=== PATIENT | male | born 1950 | race Hispanic/Latino ===

== ENCOUNTER 2017-10-05 23:13 | Inpatient (IN) | payer MEDICARE, OTHER, SELFPAY ==
[~2017-10-05] VITALS: Ht 170.2 cm; Wt 93.0 kg
[2017-10-05 23:47] LABS: CREATININE 1.2 mg/dL (0.5-1.5); POTASSIUM 3.7 mmol/L (3.5-5.1)
[2017-10-05 23:48] LABS: INR 0.99 (0.85-1.15); PARTIAL THROMBOPLASTIN TIME 25.3 SEC (26.3-35.5); PROTHROMBIN TIME 10.4 SEC (9.6-11.6)
[2017-10-06 00:01] LABS: ALBUMIN 3.2 g/dL (3.5-5.0); BILIRUBIN,TOTAL 0.3 mg/dL (0.2-1.0); CREATINE KINASE MB 0.7 ng/mL (0.5-3.6)
[2017-10-06 00:05] LABS: BASOPHILS % (AUTO) 1.8 % (0.0-5.0); EOSINOPHILS % (AUTO) 2.8 % (0.0-8.0); HEMATOCRIT 23.1 % (42-54); LYMPHOCYTES % (AUTO) 17.8 % (21.0-51.0); MEAN CORPUSCULAR HEMOGLOBIN 18.8 pg (27.0-33.0); MEAN CORPUSCULAR HGB CONC 29.7 g/dL (32.0-36.0); MEAN CORPUSCULAR VOLUME 63.5 fL (79-99); MONOCYTES % (AUTO) 8.2 % (3.0-13.0); NEUTROPHILS % (AUTO) 69.4 % (40.0-77.0); PLATELET COUNT (AUTO) 293 K/uL (130-400); RED BLOOD CELL COUNT(AUTO) 3.64 MIL/uL (4.50-6.20); RED CELL DISTRIBUTION WIDTH 18.3 % (11.0-15.5); WHITE BLOOD COUNT (AUTO) 8.8 K/uL (4.8-10.8)
[2017-10-06] MEDS ORDERED: SODIUM CHLORIDE 0.9% 500ML 500 ML IV ONE (04:51)
[2017-10-06] MEDS ORDERED: PRAV40TA3 PO (07:55)
[2017-10-06] MEDS ORDERED: NITR0.4T50 SL (07:55)
[2017-10-06] MEDS ORDERED: LISI40TA4 PO (07:55)
[2017-10-06] MEDS ORDERED: ASPI-555 PO (07:55)
[2017-10-06] MEDS ORDERED: CARV12.511 PO (07:55)
[2017-10-06] MEDS ORDERED: CLOP75TA14 PO (07:55)
[2017-10-06] MEDS ORDERED: AMLO10TA2 PO (07:55)
[2017-10-06] MEDS ORDERED: ISOS10TA8 PO (07:55)
[2017-10-06 08:43] VITALS: BP 97/69
[2017-10-06] MEDS ORDERED: PANTOPRAZOLE 40 MG/VIAL IVP SCH (09:00)
[2017-10-06 09:30] VITALS: BP 91/44
[2017-10-06 11:56] VITALS: BP 161/95
[2017-10-06 16:20] LABS: HEMATOCRIT 29.2 % (42-54)
[2017-10-06 16:37] VITALS: BP 175/93
[2017-10-06] MEDS ORDERED: HYDRALAZINE HCL 20 MG/ML VIAL IV PRN ×2 (19:30→20:00)
[2017-10-06] MEDS ORDERED: HYDRALAZINE HCL 20 MG/ML VIAL ONE (19:54)
[2017-10-06 20:00] VITALS: BP 110/61
[2017-10-06] MEDS ORDERED: ACETAMINOPHEN 325 MG TAB PO PRN (20:00)
[2017-10-06] MEDS ORDERED: ONDANSETRON HCL 4 MG/2 ML VIAL IV PRN (20:00)
[2017-10-06] MEDS ORDERED: ACETAMINOPHEN-CODEINE 300/30MG TAB PO PRN (20:00)
[2017-10-06] MEDS ORDERED: NITROGLYCERIN 0.4 MG SL TAB SL SCH (20:00)
[2017-10-06] MEDS ORDERED: MORPHINE SULFATE 2 MG/ML 1ML SYG IV PRN (20:00)
[2017-10-06] MEDS ORDERED: GUAIFENESIN-DM 200/20 MG 10 ML PO PRN (20:00)
[2017-10-06] MEDS ORDERED: MAG HYDROX/AL HYDROX/SIMETH ES 30 ML SUSP UDCUP PO PRN (20:00)
[2017-10-06] MEDS ORDERED: NITROGLYCERIN 0.4 MG SL TAB SL PRN (20:00)
[2017-10-06] MEDS ORDERED: LACTULOSE 20 GM/30 ML UDCUP PO PRN (20:00)
[2017-10-06] MEDS ORDERED: ZOLPIDEM TARTRATE 5 MG TAB PO PRN (20:00)
[2017-10-06] MEDS ORDERED: BENZONATATE 100 MG CAPSULE PO SCH (21:00)
[2017-10-06] MEDS ORDERED: ATORVASTATIN CALCIUM 20 MG TABLET PO SCH (21:00)
[2017-10-06] MEDS ORDERED: CARVEDILOL 12.5 MG TABLET PO SCH (21:00)
[2017-10-06] MEDS ORDERED: ISOSORBIDE MONONITRATE 20 MG TABLET PO SCH (21:00)
[2017-10-06 23:49] VITALS: BP 135/71
[2017-10-07 04:00] VITALS: BP 159/86
[2017-10-07 05:40] LABS: HEMATOCRIT 26.7 % (42-54)
[2017-10-07 07:52] VITALS: BP 167/79
[2017-10-07] MEDS ORDERED: AMLODIPINE BESYLATE 5 MG TAB PO SCH (09:00)
[2017-10-07] MEDS ORDERED: PANTOPRAZOLE 40 MG/VIAL IVP SCH (09:00)
[2017-10-07] MEDS ORDERED: LISINOPRIL 40 MG TABLET PO SCH (09:00)
== END 2017-10-07 08:55 | disposition left against medical advice (07) | DRG 812 ==
LOC: EDH 23:15 → EDHIP 10-06 05:08 → 4BH 10-06 11:46
PROVIDERS: ADMIT Family Medicine; ATTEND Family Medicine
PROC: 30233N1 Transfusion of Nonautologous Red Blood Cells into Peripheral Vein, Percutaneous Approach (ICD-10-PCS; principal; 2017-10-06)
DX: D64.9 Anemia, unspecified (principal); K92.2 Gastrointestinal hemorrhage, unspecified; E78.00 Pure hypercholesterolemia, unspecified; E78.5 Hyperlipidemia, unspecified; I10 Essential (primary) hypertension; I25.10 Atherosclerotic heart disease of native coronary artery without angina pectoris; Z79.82 Long term (current) use of aspirin; Z79.899 Other long term (current) drug therapy; Z87.891 Personal history of nicotine dependence; Z95.1 Presence of aortocoronary bypass graft
CPT/HCPCS: 36415; 71045; 80053; 82270; 82550; 82553; 83874; 84484; 85025; 85610; 85730; 86850; 86900; 86901; 86922; 93005; 99291; C9113; J0360; J7040; P9016